=== PATIENT | male | born 1955 | race Caucasian/White ===

== ENCOUNTER 2019-01-26 13:52 | Outpatient (CLI) | payer BC ==
--- NOTE | 2019-01-26 15:40 | ULT ---
VENOUS DUPLEX STUDY LEFT LOWER EXTREMITY: Technique: Deep veins of the left lower extremity are evaluated with color doppler, spectral analysis and compression. Indications: Left lower extremity pain and edema. FINDINGS: Deep veins of the left lower extremity show normal blood flow and compression. No evidence of DVT. IMPRESSION: Negative left lower extremity venous duplex exam. POS: [facility]
== END 2019-01-26 13:53 | disposition home or self-care (01) ==
LOC: BICULT 13:52
PROVIDERS: ATTEND Family Medicine
DX: M79.662 Pain in left lower leg (principal); M79.89 Other specified soft tissue disorders

== ENCOUNTER 2020-02-12 11:25 | Outpatient (CLI) | payer BC ==
--- NOTE | 2020-02-12 13:44 | RAD ---
RIGHT KNEE THREE VIEWS: 02/12/20 HISTORY: Fall. Right knee pain. FINDINGS/IMPRESSION: No acute fracture or dislocation seen. No joint effusion is identified. POS: [facility]
== END 2020-02-12 11:26 | disposition home or self-care (01) ==
LOC: BICRAD 11:25
PROVIDERS: ATTEND Family Medicine
DX: M25.561 Pain in right knee (principal); Z91.81 History of falling

== ENCOUNTER 2020-03-18 11:37 | Outpatient (CLI) | payer BC ==
--- NOTE | 2020-03-18 12:01 | RAD ---
EXAM: Chest 2 views: HISTORY: Cough for 6 months and hypoxia COMPARISON: 05/20/2017 FINDINGS: There is a normal-sized cardiomediastinal silhouette. There is no evidence of consolidation, mass, or pleural effusion. The bones are unremarkable. IMPRESSION: No evidence of acute cardiopulmonary disease
--- NOTE | 2020-03-18 12:02 | RAD ---
Exam:2 views right femur HISTORY: Pain. Patient fell 3 months ago. COMPARISON: None FINDINGS: No fracture, cortical irregularity or periosteal reaction. IMPRESSION: No acute abnormality.
== END 2020-03-18 11:38 | disposition home or self-care (01) ==
LOC: BICRAD 11:37
PROVIDERS: ATTEND Family Medicine
DX: M79.604 Pain in right leg (principal); R05 Cough
CPT/HCPCS: 71046

== ENCOUNTER 2020-12-14 16:13 | Outpatient (CLI) | payer BC | END 2020-12-14 16:14 | disposition home or self-care (01) | LOC: BICRAD 16:13 | PROVIDERS: ATTEND Family Medicine | DX: R06.00 Dyspnea, unspecified (principal); R06.02 Shortness of breath | CPT/HCPCS: 71046 ==

== ENCOUNTER 2022-01-03 02:31 | Inpatient (IN) | payer BC ==
[2022-01-03 03:22] LABS: Bilirubin Negative (Negative); Blood, Urine Negative (Negative); Clarity Clear (Clear); Glucose, Urine (Dipstick) 500 mg/dL (Negative); Ketone, Urine Negative (Negative); Leukocyte Negative Leu/uL (Negative); Nitrite Negative (Negative); Protein, Urine (Dipstick) Negative (Neg-Trace); Specific Gravity, Urine 1.019 (1.002-1.036); pH, Urine 5.5 (5.0-9.0)
[2022-01-03 03:39] LABS: #Lymphocytes 0.2 thou/uL (1.20-3.40); #Monocytes 0.6 thou/uL (0.11-0.59); #Neutrophils 8.9 thou/uL (1.40-6.50); %Basophils 0.1 % (0.0-1.0); %Monocytes 6.2 % (0.0-10.0); %Neutrophils 91.7 % (42.0-75.0); Hemoglobin 10.2 g/dL (14.0-18.0); Mean Corpuscular HGB CONC 35.6 g/dL (32.0-36.0); Mean Corpuscular Hemoglobin 38.4 pg (27.0-31.0); Mean Platelet Volume 9.1 fL (7.4-10.4); Platelet Count 41 thou/uL (130-400); RBC Distribution Width 14.1 % (11.5-14.5); Red Blood Cell (RBC) Count 2.66 mill/uL (4.70-6.10); White Blood Cell (WBC) Count 9.7 thou/uL (4.8-10.8)
[2022-01-03] MEDS ORDERED: Cefepime 2 GM VIAL ONE (03:39)
[2022-01-03] MEDS ORDERED: VANCOMYCIN 2 GRAM/400 ML BAG 2 GM in Premix Bag 1 BAG IVPB SCH (03:45)
[2022-01-03 03:50] LABS: ALT (SGPT) 24 U/L (8-55); AST (SGOT) 55 U/L (5-34); Albumin 2.5 g/dL (3.4-4.8); Alkaline Phosphatase 81 U/L (40-110); Anion Gap 14 mmol/L (10-20); BUN (Urea Nitrogen) 27 mg/dL (8.4-25.7); Bilirubin, Total 9.2 mg/dL (0.2-1.2); Calc. Creatinine Clearance 0 mL/min (70-130); Carbon Dioxide 20 mmol/L (23-31); Chloride 96 mmol/L (98-107); Globulin 2.8 g/dL (2.4-3.5); Glucose 293 mg/dL (80-115); Potassium 4.5 mmol/L (3.5-5.1); Protein, Total 5.3 g/dL (5.8-8.1); Sodium 125 mmol/L (136-145)
[2022-01-03] MEDS ORDERED: Albuterol Sulfate 2.5 mg/3 ml Neb NEB PRN (06:11)
[2022-01-03 06:55] LABS: Hemoglobin A1c 5.6 % (4.0-6.0)
[2022-01-03 06:59] LABS: INR-International Normal Ratio 1.8; PTT 34.1 sec (22.9-36.1); Prothrombin Time 20.9 sec (12.0-14.7)
[2022-01-03 07:05] LABS: Creatinine, Urine 98.35 mg/dL (63-166)
[2022-01-03 07:07] LABS: CK (CPK) 447 U/L (30-200); Iron 192 ug/dL (65-175); Iron Binding Capacity, Total 184 mcg/dL (261-462)
[2022-01-03 07:11] LABS: Troponin I 0.025 ng/mL (< 0.028)
[2022-01-03 07:59] LABS: Ferritin 237.77 ng/mL (22-322); Free T4 (Free Thyroxine) 0.82 ng/dL (0.70-1.48)
[2022-01-03] MEDS ORDERED: Metolazone 2.5 MG TAB PO SCH (09:00)
[2022-01-03] MEDS ORDERED: Non-Formulary Item 1 EACH (Fluticasone/Umeclidin/Vilanter [Trelegy Ellipta 200-62.5-25] 1 IH SCH (09:00)
[2022-01-03] MEDS ORDERED: Dextrose 5% in Water 1,000 ML IV PRN (09:17)
[2022-01-03] MEDS ORDERED: Dextrose 50% Abboject 50 ML SYRINGE SLOW IVP PRN (09:17)
[2022-01-03] MEDS ORDERED: Furosemide 40 MG TAB ONE (09:32)
[2022-01-03] MEDS ORDERED: Iopamidol-370 76% 500 ML 1 ML ONE (09:48)
[2022-01-03 09:51] LABS: Troponin I 0.025 ng/mL (< 0.028)
[2022-01-03] MEDS: Furosemide 40 MG TAB PO SCH ×2 (09:59→20:29)
[2022-01-03] MEDS: Lactated Ringer's 1,000 ML IV SCH ×3 (18:15→20:27)
[2022-01-03] MEDS: VANCOMYCIN 1.25 GM/250 ML BAG 1.25 GM in Premix Bag 1 BAG IVPB SCH (18:16)
[2022-01-03] MEDS: Mometasone 100 MCG/PUFF (1 INHALER) INH SCH ×2 (18:57→21:29)
[2022-01-03] MEDS: Cefepime 2 GM in Sodium Chloride 0.9% 100 ML IVPB SCH (18:58)
[2022-01-03] MEDS: Fluticasone Propionate Nasal Spray 16 gm Bottle NASAL SCH ×2 (20:26→21:28)
[2022-01-03] MEDS: Spironolactone 100 MG TAB PO SCH ×2 (20:26→20:29)
[2022-01-03] MEDS: Rifaximin 550 MG TAB PO SCH ×2 (20:26→21:29)
[2022-01-03] MEDS: HumaLOG 300 UNITS/3 ML VIAL SC PRN (21:28)
[2022-01-04] MEDS: Cefepime 2 GM in Sodium Chloride 0.9% 100 ML IVPB SCH (03:10)
[2022-01-04] MEDS ORDERED: Vancomycin 1.5 GRAM/300 ML BAG 1.5 GM in Premix Bag 1 BAG IVPB SCH (03:45)
[2022-01-04] MEDS: Lactated Ringer's 1,000 ML IV SCH ×2 (04:47→16:20)
[2022-01-04] MEDS: VANCOMYCIN 1.25 GM/250 ML BAG 1.25 GM in Premix Bag 1 BAG IVPB SCH (04:47)
[2022-01-04] MEDS: HumaLOG 300 UNITS/3 ML VIAL SC PRN ×4 (06:47→20:33)
[2022-01-04] MEDS ORDERED: Piperacillin/Tazobactam 3.375 GM in Sodium Chloride 0.9% 100 ML IVPB SCH (07:30)
[2022-01-04] MEDS: Mometasone 100 MCG/PUFF (1 INHALER) INH SCH ×2 (07:35→19:30)
[2022-01-04 08:09] LABS: Hemoglobin 9.6 g/dL (14.0-18.0); Mean Corpuscular HGB CONC 34.6 g/dL (32.0-36.0); Mean Corpuscular Hemoglobin 36.9 pg (27.0-31.0); Mean Platelet Volume 9.4 fL (7.4-10.4); Platelet Count 33 thou/uL (130-400); RBC Distribution Width 13.9 % (11.5-14.5); Red Blood Cell (RBC) Count 2.59 mill/uL (4.70-6.10)
[2022-01-04 08:20] LABS: ALT (SGPT) 22 U/L (8-55); AST (SGOT) 87 U/L (5-34); Albumin 2.3 g/dL (3.4-4.8); Alkaline Phosphatase 68 U/L (40-110); Anion Gap 13 mmol/L (10-20); BUN (Urea Nitrogen) 30 mg/dL (8.4-25.7); Bilirubin, Total 5.9 mg/dL (0.2-1.2); Calc. Creatinine Clearance 127 mL/min (70-130); Calcium 7.7 mg/dL (7.8-10.44); Carbon Dioxide 19 mmol/L (23-31); Chloride 97 mmol/L (98-107); Globulin 2.8 g/dL (2.4-3.5); Glucose 183 mg/dL (80-115); Protein, Total 5.1 g/dL (5.8-8.1); Sodium 124 mmol/L (136-145)
[2022-01-04] MEDS: Fluticasone Propionate Nasal Spray 16 gm Bottle NASAL SCH ×2 (09:34→20:32)
[2022-01-04] MEDS: Spironolactone 100 MG TAB PO SCH ×2 (09:35→20:33)
[2022-01-04] MEDS: Furosemide 40 MG TAB PO SCH ×2 (09:35→20:33)
[2022-01-04] MEDS: Rifaximin 550 MG TAB PO SCH ×2 (09:42→20:33)
[2022-01-04 10:13] LABS: Band 8 % (5-11); Eosinophils 1 % (0-10); Lymphocytes 11 % (21-51); MDiff Complete? YES; Macrocytosis SLIGHT = 6-15 cells (100X) (0-5/hpf); Monocytes 7 % (0-10); Neutrophil 68 % (42-75); Platelet Morphology Comment Appears Decreased; Polychromasia SLIGHT = 2-3 cells (100X) (0-2/hpf); Reactive Lymphocytes 5 % (0-10)
[2022-01-04 10:51] LABS: SARS-CoV-2 PCR by NAA Not Detected (NotDetected)
[2022-01-04] MEDS: Piperacillin/Tazobactam 3.375 GM in Sodium Chloride 0.9% 100 ML IVPB SCH ×2 (13:04→20:32)
[2022-01-04 14:26] LABS: Creatinine, Urine 45.53 mg/dL (63-166)
[2022-01-04 16:35] LABS: Vancomycin, Trough 19.7 ug/mL
[2022-01-05] MEDS: Piperacillin/Tazobactam 3.375 GM in Sodium Chloride 0.9% 100 ML IVPB SCH (03:07)
[2022-01-05 05:16] LABS: ALT (SGPT) 22 U/L (8-55); AST (SGOT) 42 U/L (5-34); Albumin 2.2 g/dL (3.4-4.8); Alkaline Phosphatase 69 U/L (40-110); Anion Gap 12 mmol/L (10-20); BUN (Urea Nitrogen) 27 mg/dL (8.4-25.7); Bilirubin, Total 5.3 mg/dL (0.2-1.2); Calc. Creatinine Clearance 127 mL/min (70-130); Calcium 7.9 mg/dL (7.8-10.44); Carbon Dioxide 22 mmol/L (23-31); Chloride 94 mmol/L (98-107); Globulin 2.5 g/dL (2.4-3.5); Glucose 233 mg/dL (80-115); Protein, Total 4.7 g/dL (5.8-8.1); Sodium 124 mmol/L (136-145)
[2022-01-05] MEDS: HumaLOG 300 UNITS/3 ML VIAL SC PRN ×4 (05:49→21:54)
[2022-01-05 05:50] LABS: Band 9 % (5-11); Eosinophils 3 % (0-10); Hemoglobin 9.1 g/dL (14.0-18.0); Lymphocytes 8 % (21-51); MDiff Complete? YES; Macrocytosis SLIGHT = 6-15 cells (100X) (0-5/hpf); Mean Corpuscular HGB CONC 35.6 g/dL (32.0-36.0); Mean Corpuscular Hemoglobin 37.8 pg (27.0-31.0); Monocytes 5 % (0-10); Neutrophil 74 % (42-75); Platelet Count 36 thou/uL (130-400); Platelet Morphology Comment Appears Decreased; RBC Distribution Width 13.5 % (11.5-14.5); Red Blood Cell (RBC) Count 2.41 mill/uL (4.70-6.10)
[2022-01-05] MEDS: Mometasone 100 MCG/PUFF (1 INHALER) INH SCH ×2 (06:43→19:15)
[2022-01-05] MEDS: Fluticasone Propionate Nasal Spray 16 gm Bottle NASAL SCH ×2 (09:09→21:55)
[2022-01-05] MEDS: Rifaximin 550 MG TAB PO SCH ×2 (09:10→21:56)
[2022-01-05] MEDS: Furosemide 40 MG TAB PO SCH ×2 (09:10→21:56)
[2022-01-05] MEDS: Spironolactone 100 MG TAB PO SCH ×2 (09:10→21:55)
[2022-01-05 15:05] VITALS: BMI 37.0
[2022-01-05] MEDS: Amoxicillin/Potassium Clav 875 MG TAB PO SCH (21:55)
[2022-01-05] MEDS: Metolazone 2.5 MG TAB PO SCH (21:57)
[2022-01-06 05:15] LABS: #Eosinphils 0.1 thou/uL (0.0-0.7); #Lymphocytes 0.5 thou/uL (1.20-3.40); #Monocytes 0.4 thou/uL (0.11-0.59); #Neutrophils 2.5 thou/uL (1.40-6.50); %Basophils 0.5 % (0.0-1.0); %Eosinophils 2.2 % (0.0-10.0); %Lymphocytes 13.9 % (21.0-51.0); %Monocytes 11.6 % (0.0-10.0); %Neutrophils 71.7 % (42.0-75.0); Hemoglobin 8.7 g/dL (14.0-18.0); Mean Corpuscular HGB CONC 34.4 g/dL (32.0-36.0); Mean Corpuscular Hemoglobin 36.9 pg (27.0-31.0); Mean Platelet Volume 7.9 fL (7.4-10.4); Platelet Count 40 thou/uL (130-400); RBC Distribution Width 13.7 % (11.5-14.5); Red Blood Cell (RBC) Count 2.36 mill/uL (4.70-6.10); White Blood Cell (WBC) Count 3.5 thou/uL (4.8-10.8)
[2022-01-06 05:31] LABS: ALT (SGPT) 29 U/L (8-55); AST (SGOT) 49 U/L (5-34); Albumin 2.2 g/dL (3.4-4.8); Alkaline Phosphatase 77 U/L (40-110); Anion Gap 12 mmol/L (10-20); BUN (Urea Nitrogen) 27 mg/dL (8.4-25.7); Calc. Creatinine Clearance 139 mL/min (70-130); Calcium 7.9 mg/dL (7.8-10.44); Carbon Dioxide 25 mmol/L (23-31); Chloride 93 mmol/L (98-107); Globulin 2.4 g/dL (2.4-3.5); Glucose 232 mg/dL (80-115); Potassium 4.2 mmol/L (3.5-5.1); Protein, Total 4.6 g/dL (5.8-8.1); Sodium 126 mmol/L (136-145)
[2022-01-06] MEDS: HumaLOG 300 UNITS/3 ML VIAL SC PRN ×2 (06:37→11:35)
[2022-01-06] MEDS: Mometasone 100 MCG/PUFF (1 INHALER) INH SCH (07:05)
[2022-01-06] MEDS ORDERED: Insulin Glargine 30 UNITS/0.3 ML VIAL SC SCH (09:00)
[2022-01-06] MEDS: Metolazone 2.5 MG TAB PO SCH (09:24)
[2022-01-06] MEDS: Furosemide 40 MG TAB PO SCH (09:24)
[2022-01-06] MEDS: Spironolactone 100 MG TAB PO SCH (09:24)
[2022-01-06] MEDS: Amoxicillin/Potassium Clav 875 MG TAB PO SCH (09:24)
[2022-01-06] MEDS: Rifaximin 550 MG TAB PO SCH (09:24)
[2022-01-06] MEDS: Fluticasone Propionate Nasal Spray 16 gm Bottle NASAL SCH (09:24)
[2022-01-06 11:59] VITALS: BP 122/60; TEMP 97.9
== END 2022-01-06 13:34 | disposition home health service (06) | DRG 872 ==
LOC: ERS 02:31 → ERHOLD 05:51 → OBSVTOIN 11:51 → NEURO 14:58
PROVIDERS: ADMIT Family Medicine; ATTEND Family Medicine
DX: A40.1 Sepsis due to streptococcus, group B (principal); K76.6 Portal hypertension; R18.8 Other ascites; D61.818 Other pancytopenia; E22.2 Syndrome of inappropriate secretion of antidiuretic hormone; Z23 Encounter for immunization; Z20.822 Contact with and (suspected) exposure to COVID-19; K74.60 Unspecified cirrhosis of liver; K76.0 Fatty (change of) liver, not elsewhere classified; R94.31 Abnormal electrocardiogram [ECG] [EKG]; D50.9 Iron deficiency anemia, unspecified; L89.152 Pressure ulcer of sacral region, stage 2; E03.9 Hypothyroidism, unspecified; E66.9 Obesity, unspecified; K21.9 Gastro-esophageal reflux disease without esophagitis; D63.8 Anemia in other chronic diseases classified elsewhere; K72.90 Hepatic failure, unspecified without coma; Z88.1 Allergy status to other antibiotic agents; Z79.51 Long term (current) use of inhaled steroids; Z79.899 Other long term (current) drug therapy; Z98.84 Bariatric surgery status; Z68.37 Body mass index [BMI] 37.0-37.9, adult
CPT/HCPCS: 36415; 36416; 51701; 70450; 71045; 74177; 76705; 80053; 80202; 81003; 82140; 82550; 82570; 82607; 82728; 82746; 83036; 83540; 83550; 83605; 83880; 83930; 83935; 84145; 84300; 84439; 84443; 84484; 84540; 85025; 85610; 85730; 87040; 87077; 87086; 87149; 87186; 87804; 90471; 90732; 93005; 96365; 96366; 96367; G0009; G0378; J0692; J1815; J2543; J3370; J3490; J7120; J7620; Q9967; U0003; U0005

== ENCOUNTER 2022-01-13 07:29 | Inpatient (IN) | payer BC ==
[2022-01-13 08:14] LABS: Hemoglobin 10.9 g/dL (14.0-18.0); Mean Corpuscular HGB CONC 34.7 g/dL (32.0-36.0); Mean Corpuscular Hemoglobin 36.9 pg (27.0-31.0); Mean Platelet Volume 7.4 fL (7.4-10.4); Platelet Count 68 thou/uL (130-400); RBC Distribution Width 14.1 % (11.5-14.5); Red Blood Cell (RBC) Count 2.97 mill/uL (4.70-6.10); White Blood Cell (WBC) Count 4.5 thou/uL (4.8-10.8)
[2022-01-13 08:25] LABS: ALT (SGPT) 28 U/L (8-55); AST (SGOT) 44 U/L (5-34); Albumin 2.9 g/dL (3.4-4.8); Alkaline Phosphatase 96 U/L (40-110); Anion Gap 13 mmol/L (10-20); BUN (Urea Nitrogen) 36 mg/dL (8.4-25.7); Bilirubin, Total 9.1 mg/dL (0.2-1.2); Calc. Creatinine Clearance 0 mL/min (70-130); Carbon Dioxide 28 mmol/L (23-31); Chloride 94 mmol/L (98-107); Globulin 2.8 g/dL (2.4-3.5); Glucose 160 mg/dL (80-115); Lipase 12 U/L (8-78); Potassium 4.3 mmol/L (3.5-5.1); Protein, Total 5.7 g/dL (5.8-8.1); Sodium 131 mmol/L (136-145)
[2022-01-13] MEDS ORDERED: Furosemide 40 MG/4 ML VIAL ONE (08:37)
[2022-01-13 08:48] LABS: Eosinophils 3 % (0-10); Lymphocytes 17 % (21-51); MDiff Complete? YES; Monocytes 14 % (0-10); Neutrophil 66 % (42-75); Platelet Morphology Comment Appears Decreased
[2022-01-13 10:22] VITALS: BMI 36.6
[2022-01-13] MEDS ORDERED: Ondansetron PF 4 MG/2 ML Vial IVP PRN (11:52)
[2022-01-13] MEDS ORDERED: Ondansetron ODT 4 MG TAB PO PRN (11:52)
[2022-01-13] MEDS ORDERED: Non-Formulary Item 1 EACH (Albuterol Sulfate [Albuterol Sulfate Hfa] 8.5 GM Hfa.Aer.Ad) IH PRN (12:02)
[2022-01-13] MEDS ORDERED: Albuterol 200 PUFF (6.7GM INHALER) INH PRN (12:10)
[2022-01-13] MEDS ORDERED: Dextrose 5% in Water 1,000 ML IV PRN (14:05)
[2022-01-13] MEDS ORDERED: Dextrose 50% Abboject 50 ML SYRINGE SLOW IVP PRN (14:05)
[2022-01-13] MEDS ORDERED: THYROID PORK 180 MG PO SCH (21:00)
[2022-01-13] MEDS ORDERED: Fluticasone Propionate Nasal Spray 16 gm Bottle NASAL SCH (21:00)
[2022-01-13] MEDS ORDERED: Non-Formulary Item 1 EACH (Spironolactone [Spironolactone] 50 MG Tablet) PO SCH (21:00)
[2022-01-13] MEDS: Fluticasone Propionate Nasal Spray 16 gm Bottle NASAL SCH (21:27)
[2022-01-13] MEDS: Amoxicillin/Potassium Clav 875 MG TAB PO SCH (21:30)
[2022-01-13] MEDS: Metolazone 2.5 MG TAB PO SCH (21:30)
[2022-01-13] MEDS: Spironolactone 100 MG TAB PO SCH (21:31)
[2022-01-13] MEDS: Rifaximin 550 MG TAB PO SCH (21:31)
[2022-01-13 21:58] LABS: SARS-CoV-2 PCR by NAA Not Detected (NotDetected)
[2022-01-14 04:40] LABS: #Eosinphils 0.1 thou/uL (0.0-0.7); #Lymphocytes 0.7 thou/uL (1.20-3.40); #Monocytes 0.5 thou/uL (0.11-0.59); #Neutrophils 3.1 thou/uL (1.40-6.50); %Basophils 0.4 % (0.0-1.0); %Eosinophils 1.7 % (0.0-10.0); %Monocytes 10.6 % (0.0-10.0); %Neutrophils 71.3 % (42.0-75.0); Hemoglobin 10.6 g/dL (14.0-18.0); Mean Corpuscular HGB CONC 35.4 g/dL (32.0-36.0); Mean Corpuscular Hemoglobin 37.7 pg (27.0-31.0); Mean Platelet Volume 7.7 fL (7.4-10.4); Platelet Count 64 thou/uL (130-400); RBC Distribution Width 14.2 % (11.5-14.5); White Blood Cell (WBC) Count 4.4 thou/uL (4.8-10.8)
[2022-01-14 05:20] LABS: ALT (SGPT) 25 U/L (8-55); AST (SGOT) 43 U/L (5-34); Albumin 2.7 g/dL (3.4-4.8); Alkaline Phosphatase 88 U/L (40-110); Anion Gap 14 mmol/L (10-20); BUN (Urea Nitrogen) 34 mg/dL (8.4-25.7); Bilirubin, Total 9.7 mg/dL (0.2-1.2); Calc. Creatinine Clearance 123 mL/min (70-130); Calcium 9.3 mg/dL (7.8-10.44); Carbon Dioxide 26 mmol/L (23-31); Chloride 95 mmol/L (98-107); Globulin 2.9 g/dL (2.4-3.5); Glucose 137 mg/dL (80-115); Potassium 4.1 mmol/L (3.5-5.1); Protein, Total 5.6 g/dL (5.8-8.1); Sodium 131 mmol/L (136-145)
[2022-01-14] MEDS: Metolazone 2.5 MG TAB PO SCH (08:20)
[2022-01-14] MEDS: Amoxicillin/Potassium Clav 875 MG TAB PO SCH (08:20)
[2022-01-14] MEDS: Spironolactone 100 MG TAB PO SCH (08:20)
[2022-01-14] MEDS: Rifaximin 550 MG TAB PO SCH (08:20)
[2022-01-14] MEDS ORDERED: Non-Formulary Item 1 EACH (Fluticasone/Umeclidin/Vilanter [Trelegy Ellipta 200-62.5-25] 1 IH SCH (09:00)
[2022-01-14] MEDS: Fluticasone Propionate Nasal Spray 16 gm Bottle NASAL SCH ×2 (10:00→22:33)
[2022-01-14] MEDS: Lactated Ringer's 1,000 ML IV SCH ×2 (10:03→22:34)
[2022-01-15] MEDS: Metolazone 2.5 MG TAB PO SCH ×3 (00:13→21:49)
[2022-01-15] MEDS: Amoxicillin/Potassium Clav 875 MG TAB PO SCH ×3 (00:13→21:49)
[2022-01-15] MEDS: Rifaximin 550 MG TAB PO SCH ×3 (00:13→21:49)
[2022-01-15] MEDS: Spironolactone 100 MG TAB PO SCH ×3 (00:13→21:49)
[2022-01-15 05:30] LABS: ALT (SGPT) 22 U/L (8-55); AST (SGOT) 36 U/L (5-34); Albumin 2.5 g/dL (3.4-4.8); Alkaline Phosphatase 77 U/L (40-110); Anion Gap 12 mmol/L (10-20); BUN (Urea Nitrogen) 22 mg/dL (8.4-25.7); Bilirubin, Total 8.6 mg/dL (0.2-1.2); Calc. Creatinine Clearance 152 mL/min (70-130); Calcium 8.9 mg/dL (7.8-10.44); Carbon Dioxide 24 mmol/L (23-31); Chloride 101 mmol/L (98-107); Globulin 2.5 g/dL (2.4-3.5); Glucose 123 mg/dL (80-115); Potassium 4.1 mmol/L (3.5-5.1); Sodium 133 mmol/L (136-145)
[2022-01-15 06:19] LABS: #Eosinphils 0.1 thou/uL (0.0-0.7); #Lymphocytes 0.6 thou/uL (1.20-3.40); #Monocytes 0.4 thou/uL (0.11-0.59); #Neutrophils 2.4 thou/uL (1.40-6.50); %Eosinophils 2.2 % (0.0-10.0); %Lymphocytes 16.4 % (21.0-51.0); %Monocytes 10.2 % (0.0-10.0); %Neutrophils 70.1 % (42.0-75.0); Hemoglobin 9.5 g/dL (14.0-18.0); Mean Corpuscular HGB CONC 34.2 g/dL (32.0-36.0); Mean Corpuscular Hemoglobin 36.6 pg (27.0-31.0); Mean Platelet Volume 7.2 fL (7.4-10.4); Platelet Count 53 thou/uL (130-400); White Blood Cell (WBC) Count 3.5 thou/uL (4.8-10.8)
[2022-01-15] MEDS: Fluticasone Propionate Nasal Spray 16 gm Bottle NASAL SCH ×2 (08:27→21:50)
[2022-01-15] MEDS: Lactated Ringer's 1,000 ML IV SCH ×2 (09:15→18:09)
[2022-01-15] MEDS ORDERED: Non-Formulary Item 1 EACH (Lactulose 10 Gm/15ml Oral Sol 10 GM/15 ML Ml) PO SCH (15:00)
[2022-01-15] MEDS: Mometasone 100 MCG/PUFF (1 INHALER) INH SCH (19:00)
[2022-01-16] MEDS: Lactated Ringer's 1,000 ML IV SCH (03:32)
[2022-01-16 04:09] LABS: #Eosinphils 0.1 thou/uL (0.0-0.7); #Lymphocytes 0.5 thou/uL (1.20-3.40); #Monocytes 0.4 thou/uL (0.11-0.59); #Neutrophils 3.2 thou/uL (1.40-6.50); %Basophils 0.4 % (0.0-1.0); %Eosinophils 1.9 % (0.0-10.0); %Lymphocytes 11.8 % (21.0-51.0); %Monocytes 10.4 % (0.0-10.0); %Neutrophils 75.5 % (42.0-75.0); Hemoglobin 9.4 g/dL (14.0-18.0); Mean Corpuscular HGB CONC 35.5 g/dL (32.0-36.0); Mean Corpuscular Hemoglobin 37.4 pg (27.0-31.0); Mean Platelet Volume 7.3 fL (7.4-10.4); Platelet Count 47 thou/uL (130-400); RBC Distribution Width 14.1 % (11.5-14.5); Red Blood Cell (RBC) Count 2.52 mill/uL (4.70-6.10); White Blood Cell (WBC) Count 4.2 thou/uL (4.8-10.8)
[2022-01-16 04:25] LABS: ALT (SGPT) 22 U/L (8-55); AST (SGOT) 39 U/L (5-34); Albumin 2.4 g/dL (3.4-4.8); Alkaline Phosphatase 81 U/L (40-110); Anion Gap 10 mmol/L (10-20); BUN (Urea Nitrogen) 20 mg/dL (8.4-25.7); Bilirubin, Total 8.9 mg/dL (0.2-1.2); Calc. Creatinine Clearance 147 mL/min (70-130); Carbon Dioxide 26 mmol/L (23-31); Chloride 96 mmol/L (98-107); Globulin 2.7 g/dL (2.4-3.5); Glucose 162 mg/dL (80-115); Potassium 4.3 mmol/L (3.5-5.1); Protein, Total 5.1 g/dL (5.8-8.1); Sodium 128 mmol/L (136-145)
[2022-01-16] MEDS: HumaLOG 300 UNITS/3 ML VIAL SC PRN ×3 (05:31→20:47)
[2022-01-16] MEDS: Mometasone 100 MCG/PUFF (1 INHALER) INH SCH ×2 (06:53→18:48)
[2022-01-16] MEDS: Amoxicillin/Potassium Clav 875 MG TAB PO SCH ×2 (08:27→20:42)
[2022-01-16] MEDS: Rifaximin 550 MG TAB PO SCH ×2 (08:27→20:41)
[2022-01-16] MEDS: Spironolactone 100 MG TAB PO SCH ×2 (08:27→20:46)
[2022-01-16] MEDS: Metolazone 2.5 MG TAB PO SCH ×2 (08:28→20:46)
[2022-01-16] MEDS: Fluticasone Propionate Nasal Spray 16 gm Bottle NASAL SCH ×2 (08:29→20:55)
[2022-01-16] MEDS ORDERED: Furosemide 40 MG TAB PO SCH (10:45)
[2022-01-16] MEDS ORDERED: Senokot S 8.6-50 MG TAB PO SCH (10:45)
[2022-01-16] MEDS: Senokot S 8.6-50 MG TAB PO SCH (20:42)
[2022-01-16] MEDS: Furosemide 40 MG TAB PO SCH (20:46)
[2022-01-17 04:39] LABS: #Eosinphils 0.1 thou/uL (0.0-0.7); #Lymphocytes 0.6 thou/uL (1.20-3.40); #Monocytes 0.5 thou/uL (0.11-0.59); #Neutrophils 3.4 thou/uL (1.40-6.50); %Basophils 0.3 % (0.0-1.0); %Eosinophils 1.5 % (0.0-10.0); %Lymphocytes 13.7 % (21.0-51.0); %Monocytes 9.8 % (0.0-10.0); %Neutrophils 74.7 % (42.0-75.0); Hemoglobin 9.4 g/dL (14.0-18.0); Mean Corpuscular HGB CONC 36.1 g/dL (32.0-36.0); Mean Corpuscular Hemoglobin 37.7 pg (27.0-31.0); Mean Platelet Volume 7.8 fL (7.4-10.4); Platelet Count 45 thou/uL (130-400); RBC Distribution Width 14.1 % (11.5-14.5); White Blood Cell (WBC) Count 4.6 thou/uL (4.8-10.8)
[2022-01-17 04:54] LABS: ALT (SGPT) 20 U/L (8-55); AST (SGOT) 35 U/L (5-34); Albumin 2.5 g/dL (3.4-4.8); Alkaline Phosphatase 78 U/L (40-110); Anion Gap 11 mmol/L (10-20); BUN (Urea Nitrogen) 16 mg/dL (8.4-25.7); Bilirubin, Total 8.3 mg/dL (0.2-1.2); Calc. Creatinine Clearance 140 mL/min (70-130); Calcium 8.5 mg/dL (7.8-10.44); Carbon Dioxide 26 mmol/L (23-31); Chloride 93 mmol/L (98-107); Globulin 2.7 g/dL (2.4-3.5); Glucose 179 mg/dL (80-115); Protein, Total 5.2 g/dL (5.8-8.1); Sodium 126 mmol/L (136-145)
[2022-01-17] MEDS: HumaLOG 300 UNITS/3 ML VIAL SC PRN ×4 (05:17→20:51)
[2022-01-17] MEDS: Mometasone 100 MCG/PUFF (1 INHALER) INH SCH ×2 (06:58→19:08)
[2022-01-17] MEDS: Fluticasone Propionate Nasal Spray 16 gm Bottle NASAL SCH ×2 (08:37→20:55)
[2022-01-17] MEDS: Senokot S 8.6-50 MG TAB PO SCH ×2 (08:38→20:49)
[2022-01-17] MEDS: Rifaximin 550 MG TAB PO SCH ×2 (08:38→20:49)
[2022-01-17] MEDS: Metolazone 2.5 MG TAB PO SCH ×2 (08:38→20:49)
[2022-01-17] MEDS: Amoxicillin/Potassium Clav 875 MG TAB PO SCH (08:38)
[2022-01-17] MEDS: Spironolactone 100 MG TAB PO SCH ×2 (08:38→20:49)
[2022-01-17] MEDS: Furosemide 40 MG TAB PO SCH ×2 (08:38→20:49)
[2022-01-18 05:09] LABS: Band 3 % (5-11); Hemoglobin 9.1 g/dL (14.0-18.0); Lymphocytes 16 % (21-51); MDiff Complete? YES; Macrocytosis SLIGHT = 6-15 cells (100X) (0-5/hpf); Mean Corpuscular HGB CONC 36.5 g/dL (32.0-36.0); Mean Corpuscular Hemoglobin 38.1 pg (27.0-31.0); Mean Platelet Volume 8.2 fL (7.4-10.4); Monocytes 8 % (0-10); Neutrophil 73 % (42-75); Platelet Count 50 thou/uL (130-400); Platelet Morphology Comment Appears Decreased; RBC Distribution Width 14.5 % (11.5-14.5); Red Blood Cell (RBC) Count 2.39 mill/uL (4.70-6.10); White Blood Cell (WBC) Count 4.9 thou/uL (4.8-10.8)
[2022-01-18 05:11] LABS: ALT (SGPT) 18 U/L (8-55); AST (SGOT) 33 U/L (5-34); Albumin 2.4 g/dL (3.4-4.8); Alkaline Phosphatase 84 U/L (40-110); Anion Gap 11 mmol/L (10-20); BUN (Urea Nitrogen) 17 mg/dL (8.4-25.7); Bilirubin, Total 7.5 mg/dL (0.2-1.2); Calc. Creatinine Clearance 145 mL/min (70-130); Calcium 8.4 mg/dL (7.8-10.44); Carbon Dioxide 27 mmol/L (23-31); Chloride 91 mmol/L (98-107); Globulin 2.5 g/dL (2.4-3.5); Glucose 277 mg/dL (80-115); Potassium 4.3 mmol/L (3.5-5.1); Protein, Total 4.9 g/dL (5.8-8.1); Sodium 125 mmol/L (136-145)
[2022-01-18] MEDS: HumaLOG 300 UNITS/3 ML VIAL SC PRN ×4 (05:40→20:54)
[2022-01-18] MEDS: Mometasone 100 MCG/PUFF (1 INHALER) INH SCH ×2 (08:13→19:10)
[2022-01-18] MEDS: Rifaximin 550 MG TAB PO SCH ×2 (08:15→20:52)
[2022-01-18] MEDS: Spironolactone 100 MG TAB PO SCH ×2 (08:15→20:52)
[2022-01-18] MEDS: Senokot S 8.6-50 MG TAB PO SCH ×2 (08:15→20:52)
[2022-01-18] MEDS: Furosemide 40 MG TAB PO SCH (08:15)
[2022-01-18] MEDS: Metolazone 2.5 MG TAB PO SCH ×2 (08:16→20:53)
[2022-01-18] MEDS: Fluticasone Propionate Nasal Spray 16 gm Bottle NASAL SCH ×2 (08:18→20:51)
[2022-01-18 11:49] LABS: Creatinine, Urine 33.16 mg/dL (63-166)
[2022-01-18] MEDS ORDERED: Sodium Chloride 0.9% 500 ML IV SCH (17:00)
[2022-01-18] MEDS: Insulin Glargine 30 UNITS/0.3 ML VIAL SC SCH (20:53)
[2022-01-19 04:29] LABS: #Eosinphils 0.1 thou/uL (0.0-0.7); #Lymphocytes 0.5 thou/uL (1.20-3.40); #Monocytes 0.6 thou/uL (0.11-0.59); #Neutrophils 2.5 thou/uL (1.40-6.50); %Basophils 0.7 % (0.0-1.0); %Eosinophils 2.3 % (0.0-10.0); %Lymphocytes 14.2 % (21.0-51.0); %Monocytes 14.8 % (0.0-10.0); Mean Corpuscular HGB CONC 35.9 g/dL (32.0-36.0); Mean Corpuscular Hemoglobin 37.9 pg (27.0-31.0); Mean Platelet Volume 7.7 fL (7.4-10.4); Platelet Count 48 thou/uL (130-400); RBC Distribution Width 14.6 % (11.5-14.5); Red Blood Cell (RBC) Count 2.37 mill/uL (4.70-6.10); White Blood Cell (WBC) Count 3.7 thou/uL (4.8-10.8)
[2022-01-19 04:43] LABS: ALT (SGPT) 19 U/L (8-55); AST (SGOT) 31 U/L (5-34); Albumin 2.4 g/dL (3.4-4.8); Alkaline Phosphatase 81 U/L (40-110); Anion Gap 11 mmol/L (10-20); BUN (Urea Nitrogen) 18 mg/dL (8.4-25.7); Bilirubin, Total 6.8 mg/dL (0.2-1.2); Calc. Creatinine Clearance 140 mL/min (70-130); Calcium 8.3 mg/dL (7.8-10.44); Carbon Dioxide 26 mmol/L (23-31); Chloride 93 mmol/L (98-107); Globulin 2.5 g/dL (2.4-3.5); Glucose 223 mg/dL (80-115); Protein, Total 4.9 g/dL (5.8-8.1); Sodium 126 mmol/L (136-145)
[2022-01-19] MEDS: HumaLOG 300 UNITS/3 ML VIAL SC PRN ×4 (05:13→21:49)
[2022-01-19] MEDS: Mometasone 100 MCG/PUFF (1 INHALER) INH SCH ×2 (07:20→18:46)
[2022-01-19] MEDS: Furosemide 40 MG TAB PO SCH (09:08)
[2022-01-19] MEDS: Metolazone 2.5 MG TAB PO SCH ×2 (09:08→21:41)
[2022-01-19] MEDS: Senokot S 8.6-50 MG TAB PO SCH ×2 (09:08→21:40)
[2022-01-19] MEDS: Rifaximin 550 MG TAB PO SCH ×2 (09:08→21:40)
[2022-01-19] MEDS: Spironolactone 100 MG TAB PO SCH ×2 (09:13→21:41)
[2022-01-19] MEDS: Fluticasone Propionate Nasal Spray 16 gm Bottle NASAL SCH ×2 (09:18→21:37)
[2022-01-19] MEDS ORDERED: Sodium Chloride 0.9% 500 ML IV SCH (10:00)
[2022-01-19] MEDS: Insulin Glargine 30 UNITS/0.3 ML VIAL SC SCH (21:45)
[2022-01-20] MEDS: HumaLOG 300 UNITS/3 ML VIAL SC PRN ×5 (02:18→21:27)
[2022-01-20 05:04] LABS: ALT (SGPT) 19 U/L (8-55); AST (SGOT) 32 U/L (5-34); Albumin 2.4 g/dL (3.4-4.8); Alkaline Phosphatase 84 U/L (40-110); Anion Gap 9 mmol/L (10-20); BUN (Urea Nitrogen) 17 mg/dL (8.4-25.7); Bilirubin, Total 6.9 mg/dL (0.2-1.2); Calc. Creatinine Clearance 147 mL/min (70-130); Calcium 8.2 mg/dL (7.8-10.44); Carbon Dioxide 27 mmol/L (23-31); Chloride 94 mmol/L (98-107); Globulin 2.5 g/dL (2.4-3.5); Glucose 217 mg/dL (80-115); Potassium 4.1 mmol/L (3.5-5.1); Protein, Total 4.9 g/dL (5.8-8.1); Sodium 126 mmol/L (136-145)
[2022-01-20 05:11] LABS: #Eosinphils 0.1 thou/uL (0.0-0.7); #Lymphocytes 0.5 thou/uL (1.20-3.40); #Monocytes 0.6 thou/uL (0.11-0.59); #Neutrophils 2.9 thou/uL (1.40-6.50); %Basophils 0.5 % (0.0-1.0); %Lymphocytes 12.3 % (21.0-51.0); %Monocytes 13.3 % (0.0-10.0); %Neutrophils 71.9 % (42.0-75.0); Hemoglobin 9.1 g/dL (14.0-18.0); Mean Corpuscular Hemoglobin 37.2 pg (27.0-31.0); Mean Platelet Volume 8.3 fL (7.4-10.4); Platelet Count 53 thou/uL (130-400); RBC Distribution Width 15.2 % (11.5-14.5); Red Blood Cell (RBC) Count 2.46 mill/uL (4.70-6.10); White Blood Cell (WBC) Count 4.1 thou/uL (4.8-10.8)
[2022-01-20] MEDS: Mometasone 100 MCG/PUFF (1 INHALER) INH SCH ×2 (07:08→20:00)
[2022-01-20] MEDS: HumaLOG 300 UNITS/3 ML VIAL SC SCH ×3 (08:30→16:40)
[2022-01-20] MEDS: Rifaximin 550 MG TAB PO SCH ×2 (08:30→21:24)
[2022-01-20] MEDS: Spironolactone 100 MG TAB PO SCH ×2 (08:30→21:24)
[2022-01-20] MEDS: Senokot S 8.6-50 MG TAB PO SCH ×2 (08:30→21:24)
[2022-01-20] MEDS: Furosemide 40 MG TAB PO SCH (08:30)
[2022-01-20] MEDS: Fluticasone Propionate Nasal Spray 16 gm Bottle NASAL SCH ×2 (08:31→21:27)
[2022-01-20] MEDS: Metolazone 2.5 MG TAB PO SCH ×2 (08:31→21:24)
[2022-01-20 16:12] LABS: SARS-CoV-2 PCR by NAA Not Detected (NotDetected)
[2022-01-20] MEDS: Insulin Glargine 30 UNITS/0.3 ML VIAL SC SCH (21:27)
[2022-01-21] MEDS: HumaLOG 300 UNITS/3 ML VIAL SC PRN ×3 (05:43→21:20)
[2022-01-21 06:27] LABS: #Eosinphils 0.1 thou/uL (0.0-0.7); #Lymphocytes 0.5 thou/uL (1.20-3.40); #Monocytes 0.6 thou/uL (0.11-0.59); #Neutrophils 4.5 thou/uL (1.40-6.50); %Basophils 0.4 % (0.0-1.0); %Eosinophils 2.2 % (0.0-10.0); %Lymphocytes 8.2 % (21.0-51.0); %Monocytes 10.3 % (0.0-10.0); Hemoglobin 9.7 g/dL (14.0-18.0); Mean Corpuscular HGB CONC 36.1 g/dL (32.0-36.0); Mean Corpuscular Hemoglobin 38.4 pg (27.0-31.0); Mean Platelet Volume 8.1 fL (7.4-10.4); Platelet Count 51 thou/uL (130-400); RBC Distribution Width 15.4 % (11.5-14.5); Red Blood Cell (RBC) Count 2.53 mill/uL (4.70-6.10); White Blood Cell (WBC) Count 5.6 thou/uL (4.8-10.8)
[2022-01-21 06:51] LABS: ALT (SGPT) 21 U/L (8-55); AST (SGOT) 39 U/L (5-34); Albumin 2.5 g/dL (3.4-4.8); Alkaline Phosphatase 91 U/L (40-110); Anion Gap 13 mmol/L (10-20); BUN (Urea Nitrogen) 19 mg/dL (8.4-25.7); Calc. Creatinine Clearance 159 mL/min (70-130); Calcium 8.2 mg/dL (7.8-10.44); Carbon Dioxide 22 mmol/L (23-31); Chloride 94 mmol/L (98-107); Globulin 2.7 g/dL (2.4-3.5); Glucose 214 mg/dL (80-115); Potassium 4.3 mmol/L (3.5-5.1); Protein, Total 5.2 g/dL (5.8-8.1); Sodium 125 mmol/L (136-145)
[2022-01-21] MEDS: Mometasone 100 MCG/PUFF (1 INHALER) INH SCH ×2 (07:19→19:22)
[2022-01-21] MEDS: Senokot S 8.6-50 MG TAB PO SCH ×2 (08:37→21:19)
[2022-01-21] MEDS: Spironolactone 100 MG TAB PO SCH ×2 (08:37→21:19)
[2022-01-21] MEDS: Metolazone 2.5 MG TAB PO SCH ×2 (08:37→21:19)
[2022-01-21] MEDS: Rifaximin 550 MG TAB PO SCH ×2 (08:37→21:19)
[2022-01-21] MEDS: Furosemide 40 MG TAB PO SCH (08:37)
[2022-01-21] MEDS: HumaLOG 300 UNITS/3 ML VIAL SC SCH ×3 (08:38→16:26)
[2022-01-21] MEDS: Fluticasone Propionate Nasal Spray 16 gm Bottle NASAL SCH ×2 (08:45→21:19)
[2022-01-21] MEDS: Insulin Glargine 30 UNITS/0.3 ML VIAL SC SCH (21:20)
[2022-01-22 04:28] LABS: ALT (SGPT) 21 U/L (8-55); AST (SGOT) 50 U/L (5-34); Albumin 2.3 g/dL (3.4-4.8); Alkaline Phosphatase 89 U/L (40-110); Anion Gap 13 mmol/L (10-20); BUN (Urea Nitrogen) 25 mg/dL (8.4-25.7); Bilirubin, Total 7.5 mg/dL (0.2-1.2); Calc. Creatinine Clearance 143 mL/min (70-130); Carbon Dioxide 22 mmol/L (23-31); Chloride 96 mmol/L (98-107); Globulin 2.8 g/dL (2.4-3.5); Glucose 185 mg/dL (80-115); Potassium 4.4 mmol/L (3.5-5.1); Protein, Total 5.1 g/dL (5.8-8.1); Sodium 127 mmol/L (136-145)
[2022-01-22 04:59] LABS: Platelet Count 24 thou/uL (130-400)
[2022-01-22] MEDS: HumaLOG 300 UNITS/3 ML VIAL SC PRN ×3 (05:32→21:39)
[2022-01-22 05:33] LABS: #Eosinphils 0.1 thou/uL (0.0-0.7); #Lymphocytes 0.6 thou/uL (1.20-3.40); #Monocytes 0.5 thou/uL (0.11-0.59); #Neutrophils 2.7 thou/uL (1.40-6.50); %Basophils 0.6 % (0.0-1.0); %Eosinophils 2.2 % (0.0-10.0); %Lymphocytes 15.7 % (21.0-51.0); %Monocytes 12.5 % (0.0-10.0); %Neutrophils 68.9 % (42.0-75.0); Anisocytosis SLIGHT = 6-15 cells (100X) (0-5/hpf); Hemoglobin 9.4 g/dL (14.0-18.0); MDiff Complete? YES; Mean Platelet Volume 9.7 fL (7.4-10.4); Platelet Morphology Comment Appears Decreased; RBC Distribution Width 15.6 % (11.5-14.5); White Blood Cell (WBC) Count 3.9 thou/uL (4.8-10.8)
[2022-01-22] MEDS: Metolazone 2.5 MG TAB PO SCH ×2 (08:20→21:38)
[2022-01-22] MEDS: Furosemide 20 MG TAB PO SCH (08:20)
[2022-01-22] MEDS: Rifaximin 550 MG TAB PO SCH ×2 (08:20→21:37)
[2022-01-22] MEDS: HumaLOG 300 UNITS/3 ML VIAL SC SCH ×3 (08:21→16:57)
[2022-01-22] MEDS: Fluticasone Propionate Nasal Spray 16 gm Bottle NASAL SCH ×2 (08:23→21:37)
[2022-01-22] MEDS: Senokot S 8.6-50 MG TAB PO SCH ×2 (08:29→21:41)
[2022-01-22] MEDS: Spironolactone 100 MG TAB PO SCH ×2 (08:29→21:37)
[2022-01-22] MEDS: Mometasone 100 MCG/PUFF (1 INHALER) INH SCH ×2 (09:56→19:50)
[2022-01-22 13:09] LABS: #Eosinphils 0.1 thou/uL (0.0-0.7); #Lymphocytes 0.6 thou/uL (1.20-3.40); #Monocytes 0.3 thou/uL (0.11-0.59); #Neutrophils 2.1 thou/uL (1.40-6.50); %Basophils 0.4 % (0.0-1.0); %Eosinophils 2.2 % (0.0-10.0); %Lymphocytes 18.6 % (21.0-51.0); %Monocytes 10.6 % (0.0-10.0); %Neutrophils 68.2 % (42.0-75.0); Hemoglobin 9.4 g/dL (14.0-18.0); Mean Corpuscular HGB CONC 33.5 g/dL (32.0-36.0); Mean Corpuscular Hemoglobin 36.5 pg (27.0-31.0); Mean Platelet Volume 10.3 fL (7.4-10.4); Platelet Count 14 thou/uL (130-400); RBC Distribution Width 15.5 % (11.5-14.5); Red Blood Cell (RBC) Count 2.59 mill/uL (4.70-6.10)
[2022-01-22] MEDS: Insulin Glargine 30 UNITS/0.3 ML VIAL SC SCH (21:39)
[2022-01-23 04:33] LABS: Hemoglobin 9.1 g/dL (14.0-18.0); Mean Corpuscular HGB CONC 35.9 g/dL (32.0-36.0); Mean Corpuscular Hemoglobin 38.7 pg (27.0-31.0); Mean Platelet Volume 8.3 fL (7.4-10.4); Platelet Count 51 thou/uL (130-400); RBC Distribution Width 15.1 % (11.5-14.5); Red Blood Cell (RBC) Count 2.36 mill/uL (4.70-6.10)
[2022-01-23 04:54] LABS: ALT (SGPT) 20 U/L (8-55); AST (SGOT) 39 U/L (5-34); Albumin 2.4 g/dL (3.4-4.8); Alkaline Phosphatase 88 U/L (40-110); Anion Gap 11 mmol/L (10-20); BUN (Urea Nitrogen) 25 mg/dL (8.4-25.7); Calc. Creatinine Clearance 154 mL/min (70-130); Calcium 8.2 mg/dL (7.8-10.44); Carbon Dioxide 24 mmol/L (23-31); Chloride 100 mmol/L (98-107); Globulin 2.6 g/dL (2.4-3.5); Glucose 213 mg/dL (80-115); Potassium 4.3 mmol/L (3.5-5.1); Sodium 131 mmol/L (136-145)
[2022-01-23 05:13] LABS: #Lymphocytes 0.4 thou/uL (1.20-3.40); #Monocytes 0.4 thou/uL (0.11-0.59); #Neutrophils 2.2 thou/uL (1.40-6.50); %Eosinophils 1.2 % (0.0-10.0); %Lymphocytes 13.5 % (21.0-51.0); %Monocytes 13.8 % (0.0-10.0); %Neutrophils 71.5 % (42.0-75.0); MDiff Complete? YES; Macrocytosis SLIGHT = 6-15 cells (100X) (0-5/hpf); Platelet Morphology Comment Appears Decreased; Polychromasia SLIGHT = 2-3 cells (100X) (0-2/hpf)
[2022-01-23] MEDS: HumaLOG 300 UNITS/3 ML VIAL SC PRN (05:49)
[2022-01-23] MEDS: Mometasone 100 MCG/PUFF (1 INHALER) INH SCH (06:54)
[2022-01-23] MEDS: Metolazone 2.5 MG TAB PO SCH (08:39)
[2022-01-23] MEDS: Fluticasone Propionate Nasal Spray 16 gm Bottle NASAL SCH (08:39)
[2022-01-23] MEDS: Rifaximin 550 MG TAB PO SCH (08:39)
[2022-01-23] MEDS: Furosemide 20 MG TAB PO SCH (08:39)
[2022-01-23] MEDS: HumaLOG 300 UNITS/3 ML VIAL SC SCH ×2 (08:39→12:24)
[2022-01-23] MEDS: Spironolactone 100 MG TAB PO SCH (08:39)
[2022-01-23] MEDS: Senokot S 8.6-50 MG TAB PO SCH (08:42)
[2022-01-23 12:26] VITALS: BP 126/81; TEMP 97.7
== END 2022-01-23 12:38 | disposition home health service (06) | DRG 442 ==
LOC: ERS 07:29 → T4-B 09:09
PROVIDERS: ADMIT Family Medicine; ATTEND Family Medicine
DX: K72.00 Acute and subacute hepatic failure without coma (principal); K76.6 Portal hypertension; R18.8 Other ascites; E87.1 Hypo-osmolality and hyponatremia; D61.818 Other pancytopenia; E72.20 Disorder of urea cycle metabolism, unspecified; Z20.822 Contact with and (suspected) exposure to COVID-19; K74.60 Unspecified cirrhosis of liver; E03.9 Hypothyroidism, unspecified; E66.9 Obesity, unspecified; K21.9 Gastro-esophageal reflux disease without esophagitis; K75.81 Nonalcoholic steatohepatitis (NASH); R94.31 Abnormal electrocardiogram [ECG] [EKG]; K59.00 Constipation, unspecified; L89.152 Pressure ulcer of sacral region, stage 2; E11.65 Type 2 diabetes mellitus with hyperglycemia; I49.3 Ventricular premature depolarization; Z88.1 Allergy status to other antibiotic agents; Z79.51 Long term (current) use of inhaled steroids; Z79.899 Other long term (current) drug therapy; Z98.84 Bariatric surgery status; Z98.890 Other specified postprocedural states; Z98.49 Cataract extraction status, unspecified eye; Z79.890 Hormone replacement therapy; Z68.32 Body mass index [BMI] 32.0-32.9, adult
CPT/HCPCS: 36415; 36416; 71045; 74018; 80053; 82140; 82570; 83690; 83880; 83930; 83935; 84484; 84540; 85025; 85060; 93005; 93010; 94640; 94760; 96374; J1815; J1940; J7050; J7120; J7620; U0003; U0005

== ENCOUNTER 2022-09-01 07:25 | Emergency (ER) | payer BC ==
[2022-09-01] MEDS ORDERED: Aztreonam 2 GM in Sodium Chloride 0.9% 100 ML IVPB SCH ×2 (08:45→17:30)
[2022-09-01] MEDS ORDERED: VANCOMYCIN 2 GRAM/500 ML BAG 2 GM in Premix Bag 1 BAG IVPB SCH (09:00)
[2022-09-01 09:05] LABS: #Lymphocytes 0.4 thou/uL (1.20-3.40); #Monocytes 0.2 thou/uL (0.11-0.59); %Basophils 0.2 % (0.0-1.0); %Eosinophils 0.3 % (0.0-10.0); %Lymphocytes 10.3 % (21.0-51.0); %Monocytes 5.7 % (0.0-10.0); %Neutrophils 83.6 % (42.0-75.0); Hemoglobin 8.6 g/dL (14.0-18.0); Mean Corpuscular HGB CONC 33.5 g/dL (32.0-36.0); Mean Corpuscular Hemoglobin 30.7 pg (27.0-31.0); Mean Corpuscular Volume 91.6 fl (78.0-98.0); Mean Platelet Volume 10.5 fL (7.4-10.4); Platelet Count 45 10x3/uL (130-400); RBC Distribution Width 14.8 % (11.5-14.5); White Blood Cell (WBC) Count 3.6 10x3/uL (4.8-10.8)
[2022-09-01 09:22] LABS: INR-International Normal Ratio 1.3
[2022-09-01 09:23] LABS: PTT 33.5 sec (22.9-36.1)
[2022-09-01 09:24] LABS: ALT (SGPT) Less than 7 U/L (8-55); AST (SGOT) 11 U/L (5-34); Albumin 2.6 g/dL (3.4-4.8); Alkaline Phosphatase 97 U/L (40-110); Anion Gap 10 mmol/L (10-20); BUN (Urea Nitrogen) 34 mg/dL (8.4-25.7); Bilirubin, Total 1.4 mg/dL (0.2-1.2); Calc. Creatinine Clearance 0 mL/min (70-130); Calcium 7.4 mg/dL (7.8-10.44); Carbon Dioxide 19 mmol/L (23-31); Chloride 111 mmol/L (98-107); Estimated GFR 60; Globulin 2.1 g/dL (2.4-3.5); Glucose 89 mg/dL (80-115); Potassium 4.1 mmol/L (3.5-5.1); Protein, Total 4.7 g/dL (5.8-8.1); Sodium 136 mmol/L (136-145)
[2022-09-01 09:25] LABS: SARS-CoV-2 NAA Rapid Test Not Detected (NotDetected)
[2022-09-01 10:02] LABS: Bilirubin Negative (Negative); Blood, Urine Negative (Negative); Clarity Clear (Clear); Glucose, Urine (Dipstick) Normal (Negative); Ketone, Urine Negative (Negative); Leukocyte Negative Leu/uL (Negative); Nitrite Negative (Negative); Protein, Urine (Dipstick) 20 mg/dL (Neg-Trace); Specific Gravity, Urine 1.018 (1.002-1.036); Urobilinogen Normal mg/dL (Less than 2)
[2022-09-01] MEDS ORDERED: Acetaminophen 325 MG TAB PO PRN (15:26)
[2022-09-01] MEDS ORDERED: HumaLOG 300 UNITS/3 ML VIAL SC PRN ×2 (15:26)
[2022-09-01] MEDS ORDERED: Dextrose 50% Abboject 50 ML SYRINGE SLOW IVP PRN (15:26)
[2022-09-01] MEDS ORDERED: Ondansetron ODT 4 MG TAB PO PRN (15:26)
[2022-09-01] MEDS ORDERED: Dextrose 5% in Water 1,000 ML IV PRN (15:26)
[2022-09-01] MEDS ORDERED: Electrolyte Replacement Protocol 1 EACH IVPB ONE (15:29)
[2022-09-01] MEDS ORDERED: Electrolyte Replacement Protocol FS PRN (16:15)
[2022-09-01 16:59] LABS: Hemoglobin A1c 4.8 % (4.0-6.0)
[2022-09-01] MEDS ORDERED: Pharmacy to Dose AZTREONAM IVPB PRN ×2 (17:27→17:34)
[2022-09-01] MEDS ORDERED: Morphine 4 MG/ML VIAL SLOW IVP PRN (18:21)
[2022-09-01] MEDS ORDERED: Tacrolimus 0.5 MG CAP PO SCH (21:00)
[2022-09-01] MEDS ORDERED: Meropenem 1 GM in Sodium Chloride 0.9% 100 ML IVPB SCH (22:45)
[2022-09-02] MEDS ORDERED: Meropenem 1 GM in Sodium Chloride 0.9% 100 ML IVPB SCH (06:00)
[2022-09-02] MEDS ORDERED: Levothyroxine Sodium 100 MCG TAB PO SCH (06:00)
[2022-09-02] MEDS ORDERED: Atovaquone 750 MG/5 ML UDCUP PO SCH (09:00)
[2022-09-02] MEDS ORDERED: Ursodiol 300 MG CAP PO SCH (09:00)
[2022-09-02] MEDS ORDERED: Escitalopram Oxalate 10 mg Tablet PO SCH (09:00)
[2022-09-02] MEDS ORDERED: Magnesium Oxide 400 MG TAB PO SCH (09:00)
[2022-09-02] MEDS ORDERED: Voriconazole 50 MG TAB PO SCH (09:00)
[2022-09-02] MEDS ORDERED: Zinc Sulfate 220 MG CAP PO SCH (09:00)
[2022-09-02] MEDS ORDERED: Ergocalciferol 1.25 MG(50,000 UNITS) CAP PO SCH (09:00)
[2022-09-02] MEDS ORDERED: predniSONE 5 MG TAB PO SCH (09:00)
[2022-09-02] MEDS ORDERED: Multivitamin W/ Minerals 1 TAB PO SCH (09:00)
== END 2022-09-01 19:54 | disposition short-term general hospital (02) ==
LOC: ERS 07:25
DX: L03.116 Cellulitis of left lower limb (principal); R65.10 Systemic inflammatory response syndrome (SIRS) of non-infectious origin without acute organ dysfunction; D84.9 Immunodeficiency, unspecified; E03.9 Hypothyroidism, unspecified; Z20.822 Contact with and (suspected) exposure to COVID-19
CPT/HCPCS: 36415; 51701; 71045; 80053; 81003; 83036; 83605; 85025; 85610; 85730; 87040; 87077; 87086; 87149; 93005; 96361; 96365; 96374; J3370; J3490

== ENCOUNTER 2022-11-12 10:06 | Emergency (ER) | payer BC, MEDICARE ==
[2022-11-12] MEDS ORDERED: Vancomycin 1 GM/200 ML (FROZEN) BAG ONE (10:22)
[2022-11-12 10:58] LABS: INR-International Normal Ratio 1.2; PTT 32.3 sec (22.9-36.1); Prothrombin Time 15.4 sec (12.0-14.7)
[2022-11-12 11:10] LABS: ALT (SGPT) 7 U/L (8-55); AST (SGOT) 11 U/L (5-34); Albumin 3.3 g/dL (3.4-4.8); Alkaline Phosphatase 122 U/L (40-110); Anion Gap 11 mmol/L (10-20); BUN (Urea Nitrogen) 28 mg/dL (8.4-25.7); Bilirubin, Total 1.4 mg/dL (0.2-1.2); Calc. Creatinine Clearance 0 mL/min (70-130); Calcium 8.5 mg/dL (7.8-10.44); Carbon Dioxide 21 mmol/L (23-31); Chloride 106 mmol/L (98-107); Estimated GFR 55; Globulin 2.4 g/dL (2.4-3.5); Glucose 147 mg/dL (80-115); Lipase 4 U/L (8-78); Protein, Total 5.7 g/dL (5.8-8.1); Sodium 134 mmol/L (136-145)
[2022-11-12 11:28] LABS: Bacteria/HPF 2+ HPF (None Seen); Bilirubin Negative (Negative); Blood, Urine Negative (Negative); Glucose, Urine (Dipstick) Normal (Negative); Ketone, Urine Negative (Negative); Leukocyte 500 Leu/uL (Negative); Nitrite Negative (Negative); Protein, Urine (Dipstick) 20 mg/dL (Neg-Trace); RBC/HPF 0-3 HPF (0-3); Specific Gravity, Urine 1.026 (1.002-1.036); Squamous Epithelial 0-3 HPF (0-3); Urobilinogen Normal mg/dL (Less than 2); WBC/HPF Greater than 50 HPF (0-3)
[2022-11-12 11:29] LABS: Clarity Cloudy (Clear)
[2022-11-12] MEDS ORDERED: Piperacillin/Tazobactam 3.375 GM VIAL ONE (11:40)
[2022-11-12 12:41] LABS: #Eosinphils 0.1 thou/uL (0.0-0.7); #Lymphocytes 0.5 thou/uL (1.20-3.40); #Monocytes 0.6 thou/uL (0.11-0.59); #Neutrophils 6.7 thou/uL (1.40-6.50); %Basophils 0.1 % (0.0-1.0); %Eosinophils 1.3 % (0.0-10.0); %Lymphocytes 6.1 % (21.0-51.0); %Monocytes 7.9 % (0.0-10.0); %Neutrophils 84.7 % (42.0-75.0); Hemoglobin 10.1 g/dL (14.0-18.0); Mean Corpuscular HGB CONC 34.2 g/dL (32.0-36.0); Mean Corpuscular Hemoglobin 30.1 pg (27.0-31.0); Mean Corpuscular Volume 88.2 fl (78.0-98.0); Mean Platelet Volume 10.5 fL (7.4-10.4); Platelet Count 49 10x3/uL (130-400); RBC Distribution Width 15.4 % (11.5-14.5); Red Blood Cell (RBC) Count 3.34 mill/uL (4.70-6.10); White Blood Cell (WBC) Count 7.9 10x3/uL (4.8-10.8)
[2022-11-12 14:24] LABS: Lactic Acid 1.4 mmol/L (0.5-2.2)
[2022-11-12 15:11] LABS: SARS-CoV-2 NAA Rapid Test Not Detected (NotDetected)
== END 2022-11-12 21:41 | disposition short-term general hospital (02) ==
LOC: ERS 10:06 → UNDOADMIN 11:52 → ERHOLD 11:52 → ERS 21:41
DX: A41.9 Sepsis, unspecified organism (principal); Z20.822 Contact with and (suspected) exposure to COVID-19; E03.9 Hypothyroidism, unspecified
CPT/HCPCS: 71045; 80053; 81003; 81015; 83605; 83690; 85025; 85610; 85730; 87040; 87077; 87086; 87186; 93005; 96365; 96367; J2543; J3370-JW; U0002